=== PATIENT | male | born 1950 | race Caucasian/White ===

== ENCOUNTER 2023-04-06 15:36 | Emergency (ER) | payer OTHER, BC ==
[2023-04-06 15:51] VITALS: BMI 27.1
[2023-04-06] MEDS ORDERED: CALCIUM GLUCONATE 10% - 1,000 MG/10 ML VIAL ONE (15:51)
[2023-04-06] MEDS ORDERED: ASPIRIN 81 MG CHEWABLE TABLETS ONE (15:51)
[2023-04-06] MEDS ORDERED: ASPIRIN 325 MG TABLET PO ONE ×2 (15:51→16:04)
[2023-04-06] MEDS ORDERED: ASPIRIN 325 MG TABLET ONE (15:57)
[2023-04-06] MEDS ORDERED: TICAGRELOR 90 MG TABLET PO ONE ×2 (16:04→16:06)
[2023-04-06] MEDS ORDERED: HEPARIN NA (PORCINE) 5,000 UNITS/ML 1ML VIAL IVPUSH ONE (16:04)
[2023-04-06] MEDS ORDERED: SODIUM CHLORIDE 1,000 ML IV STA ×2 (16:04)
[2023-04-06] MEDS ORDERED: CALCIUM GLUCONATE 10% - 1,000 MG/10 ML VIAL IVPB ONE ×2 (16:04→16:12)
[2023-04-06] MEDS ORDERED: HEPARIN NA (PORCINE) 5,000 UNITS/ML 1ML VIAL ONE (16:07)
[2023-04-06 16:20] VITALS: BP 129/106; PULSE 114; RESP 20; TEMP 98.5
[2023-04-06 16:22] LABS: BASO % 0.6 % (0-2.0); HEMATOCRIT 45.4 % (35.4-49); HEMOGLOBIN 14.8 GM/dL (11.7-16.9); LYMPH % 45.2 % (8-40); MCH 27.3 pg (25.7-33.7); MCHC 32.6 g/dl (32.0-35.9); MEAN PLT VOLUME 9.8 fl (7.5-11.1); NEUT % 46.2 % (42.8-82.8); PLATELET COUNT 252 10^3/uL (134-434); RBC 5.41 M/mm3 (4.00-5.60); RDW 14.3 % (11.9-15.9)
[2023-04-06 16:36] LABS: ACTIVATED PTT 23.8 SECONDS (25.2-36.5); INR 1.01 (0.83-1.09); PROTHROMBIN TIME (PATIENT) 11.7 SEC (9.7-13.0)
[2023-04-06 16:46] LABS: VENOUS BASE EXCESS -2.7 mmol/L (-2-2); VENOUS O2 SATURATION 95.7 % (70-80); VENOUS PCO2 24.9 mmHg (38-52); VENOUS PH 7.493 (7.310-7.410)
[2023-04-06 17:01] LABS: POTASSIUM 3.9 mmol/L (3.5-5.1)
[2023-04-06 17:02] LABS: MAGNESIUM 2.4 mg/dL (1.8-2.4)
[2023-04-06 17:03] LABS: ALBUMIN 3.8 g/dl (3.4-5.0); CALCIUM 9.6 mg/dL (8.5-10.1)
[2023-04-06 17:04] LABS: BLOOD UREA NITROGEN 26.7 mg/dL (7-18)
[2023-04-06 17:07] LABS: CREATININE 1.5 mg/dL (0.55-1.3)
[2023-04-06 17:08] LABS: BILIRUBIN,TOTAL 0.7 mg/dL (0.2-1); TOT PROT 7.2 g/dl (6.4-8.2)
[2023-04-06 17:10] LABS: N-TERMINAL BNP 112.3 pg/ml (5-125)
== END 2023-04-06 16:35 | disposition short-term general hospital (02) ==
LOC: JER 15:36
PROC: 3E033GC Introduction of Other Therapeutic Substance into Peripheral Vein, Percutaneous Approach (ICD-10-PCS; principal; 2023-04-06)
PROC: 3E033GC Introduction of Other Therapeutic Substance into Peripheral Vein, Percutaneous Approach (ICD-10-PCS; 2023-04-06)
PROC: 3E0337Z Introduction of Electrolytic and Water Balance Substance into Peripheral Vein, Percutaneous Approach (ICD-10-PCS; 2023-04-06)
DX: R07.89 Other chest pain (principal); R42 Dizziness and giddiness; I21.3 ST elevation (STEMI) myocardial infarction of unspecified site; R55 Syncope and collapse; R61 Generalized hyperhidrosis; Z20.822 Contact with and (suspected) exposure to COVID-19
CPT/HCPCS: 0241U-QW; 36415; 80053; 82803; 83735; 83880; 84484; 85025; 85610; 85730; 93005; 93010; 99285-25; J1644